=== PATIENT | female | born 1965 | race Caucasian/White ===

== ENCOUNTER → 2019-09-25 08:00 | Outpatient (CLI) | payer OTHER, SELFPAY ==
--- NOTE | 2019-09-25 08:04 | BI_ITS ---
MAMMOGRAPHY - BILATERAL SCREENING REASON FOR EXAM: Female, 54 years old. Routine annual screening examination. PERTINENT HISTORY: Sister with breast cancer. Aunts with breast cancer. TECHNIQUE: Digital bilateral breast kj (3D mammographic acquisition) in the CC and MLO projections. 2-D mediolateral oblique (MLO) and craniocaudad (CC) views of both breasts were obtained. CAD: Full Field Digital Mammography with Computer Added Detection was performed. COMPARISON: Comparison is made with prior examination dated June 23, 2018. FINDINGS: Breast Composition: The breasts are almost entirely fatty. There are no dominant masses or suspicious calcifications. Stable small benign appearing bilateral axillary lymph nodes. No other significant abnormalities are identified. There has been no significant change since the prior study. BI/SCREEN MAMM (CAD) W/KJ BILAT IMPRESSION: Stable bilateral screening mammogram. Yearly follow-up mammogram recommended. (A) ASSESSMENT CATEGORY: BIRADS Category 2: Benign. A letter regarding these results will be sent to the patient by the facility within 30 days. Approximately 10% of breast cancers are not detected by mammography. A normal mammogram should not delay biopsy of a clinically suspicious abnormality. [id number] Electronically Signed: Matt Hinojosa, at 8:09 EST , Service support ,
== END ==
PROVIDERS: Family Provider Family Medicine; PCP Family Medicine; Referring Provider Family Medicine; Visit Provider Family Medicine
DX: Z12.31 Encounter for screening mammogram for malignant neoplasm of breast (principal)
CPT/HCPCS: 77063; 77067

== ENCOUNTER 2025-04-20 09:08 | Day surgery (SDC) | payer OTHER, SELFPAY ==
[2025-04-20] VITALS (8 sets, daily range): BP systolic 105–143; BP diastolic 70–98; PULSE 57–78; RESP 16–18; TEMP 36.1–36.6; O2SAT 97–100; BMI 47.2
--- NOTE | 2025-04-20 09:24 | PCM.HP.STD ---
HPI - General General Date of Admission: 04/20/25 Date of Service: 04/20/25 Chief Complaint: Screening colonoscopy HPI Narrative MARION PLASCENCIA, is a 59 F who presents for screening colonoscopy. She had a colonoscopy June 2 years ago and it was normal. She not have any abdominal pain, cramping, chest pain or shortness of breath. [facility] Medical History PONV (postoperative nausea and vomiting) Post-menopausal Wears glasses Cancer Arthritis Hyperthyroidism Thyroid disease Diverticulosis Non-smoker Leg cramps History of stress test Home Medications ?Medication ?Instructions ?Recorded ?Last Taken ?Type glucosamine sulf dipot 3 cap PO QWEEK 04/19/25 Unknown History chlr,msm,chond 550 mg-C 30 mg-flori 1 mg capsule (Glucosamine Chondroitin) levothyroxine 100 mcg tablet 100 mcg PO DAILY disorder of 04/19/25 Unknown History thyroid gland multivitamin (Daily Multi-Vitamin 1 tab PO QWEEK 04/19/25 Unknown History tablet) mv-min-vit C-ascorb 1 tab PO .4X/WEEK 04/19/25 Unknown History Nr-Bwu-Azg-herb #124 333 mg-1.7 mg chewable tablet (Airborne (ascorbate sodium)) sodium hyaluronate 20 mg capsule 60 mg PO QWEEK 04/19/25 Unknown History turmeric 400 mg capsule 400 mg PO QWEEK 04/19/25 Unknown History vitamin B complex (Balanced B-50 1 tab PO QWEEK 04/19/25 Unknown History tablet) vitamin B complex (Vitamins B 1 cap PO QWEEK 04/19/25 Unknown History Complex capsule) Allergy/AdvReac Type Severity Reaction Status Date / Time adhesive AdvReac Intermediate RASH Verified 04/19/25 11:53 loratadine (From Claritin) AdvReac Intermediate Other Verified 04/19/25 11:53 Surgical History History of ureter repair History of wisdom tooth extraction History of foot surgery History of laparoscopy History of laminectomy History of colonoscopy Social History Smoking Status: Never smoker ROS Constitutional Constitutional: Denies fatigue, fever(s), poor appetite, weight gain or weight loss Gastrointestinal Gastrointestinal: Denies belching, bloating, change in bowel habits, change in stool character, chewing difficulty, coffee ground emesis, constipation, cramping, diarrhea, dyspepsia, dysphagia, early satiety, excessive flatus, fecal incontinence, heartburn, hematemesis, hematochezia, hemorrhoids, loose stools, melena, nausea, odynophagia, rectal bleeding, tenesmus, vomiting or weight changes Physical Exam Const alert, oriented x3, no apparent distress and healthy appearing General Appearance: cooperative GI normal to inspection, nondistended, normoactive bowel sounds, soft to palpation, non-tender and non-distended Percussion: normal to percussion Rectal Exam: deferred Assessment & Plan Assessment/Plan (1) Encounter for screening colonoscopy: PLAN: She was explained alternatives, risk and benefits include understanding bleeding, infection, sepsis, perforation, need for surgery . She will have an ASA of 3.
--- NOTE | 2025-04-20 09:37 | PCM.PRE.AN2 ---
ASA Classification* ASA Classification ASA Classification: 2 Assessment & Plan Anesthesia* Anesthesia Assessment Anesthesia Assessment: Discussed sedation and/or anesthesia options, risks, benefits, and alternatives with patient/parents/legal guardian/POA. Questions invited. The patient/parents/legal guardian/POA seems to understand and agrees to proceed with anesthesia plan. Reviewed the physical assessment, medical history, allergy history and patient home medications list prior to surgery/procedure/anesthetic and documented any changes. Performed airway and anesthesia risk assessments. Anesthesia Type Anesthesia Type: MAC Anesthesia Focused Assessment* Temperature: 97.3 F Pulse Rate: 78 Blood Pressure: 143/98 Respiratory Rate: 18 Pulse Ox: 97 Oxygen Delivery Method: Room Air Airway Assessment Mouth opens: >3 cm Mallampati Score: II Teeth Condition: Intact Neck Range of motion (ROM): Full ROM Labs Anesthesia Preop lab: CBC CHEMISTRY COAG Pre-Assessment Diagnosis/Proposed Procedure Planned Operative Procedure(s): CSCOPE Anesthesia History Anesthesia History - title department manager: Anesthesia History - title department manager Hx Hospitalization No 04/19/25 11:57 Any Problems With Anesthesia Yes: PONV 04/19/25 11:57 Cholinesterase deficiency No 04/19/25 11:57 You/Your Family Experience No 04/19/25 11:57 fever (hyperthermia) with Relationship Recent Exposure to Contagious No 04/20/25 09:33 Disease Does patient have nerve No 04/19/25 11:57 stimulator Patient instructed to have device shut off --Does patient have Pacemaker No 04/20/25 09:33 or ICD? When Was Last Pacemaker Check QUESTION #4 FULL TEXT: You/Your Family Experience fever (hyperthermia) with Anesthesia Last Oral Intake Last Oral intake: Last Oral Intake NPO since 06:45 04/20/25 09:33 Meds taken in AM with sips of water? Meds patient instructed to take am of surgery PONV PONV - title department manager: PONV - title department manager Female Yes 04/19/25 11:57 HX of Motion Sickness Yes 04/19/25 11:57 HX of N/V After Surgery Yes 04/19/25 11:57 Non-Smoker Yes 04/19/25 11:57 Duration of Surgery greater No 04/19/25 11:57 than 60 minutes Number of Risk Factors 4 04/19/25 11:57 PONV Score Severe Risk 04/19/25 11:57 Height & Weight Height & Weight: Anesthesia: Height & Weight Height 5 ft 4 in 04/20/25 09:33 Weight: 124.8 kg 04/20/25 09:33 Body Mass Index (BMI) 47.2 04/20/25 09:33 Respiratory Assessment Respiratory Assessment - title department manager: Respiratory Tract Infection Hx - title department manager Hx Respiratory Tract Infection No 04/19/25 11:57 STOP Sleep Apnea STOP Sleep Apnea - title department manager: STOP Sleep Apnea - title department manager Hx Hypertension No 04/19/25 11:57 Hx Sleep Apnea No 04/19/25 11:57 CPAP BIPAP Do you snore loudly (louder No 04/19/25 11:57 than talking or can be heard Do you often feel tired/ No 04/19/25 11:57 fatigued/ sleepy during daytime? Has anyone observed you stop No 04/19/25 11:57 breathing during sleep? STOP Results Negative 04/19/25 11:57 QUESTION #5 FULL TEXT : Do you snore loudly (louder than talking or can be heard through closed doors)? 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 Specify any problems Hx of Preganancy in last 3 N/A 04/19/25 11:57 Months Nurse Filling Out Transfusion NBUCHER 04/19/25 11:57 & Questions: Date: 04/19/25 04/19/25 11:57 Time: 11:59 04/19/25 11:57 Patient unable to answer at this time (ie. confused, unrespo /Reproduction History /Reproductive History - title department manager: /Reproductive Hx- title department manager Hx Now No 04/19/25 11:57 Gestational Age (in weeks): EDC: Hx Hx Para Hx Section SAB No 04/19/25 11:57 Active Medications Active Medications: Current Medications Generic Name Dose Route Start Last Admin Trade Name Freq PRN Reason Stop Dose Admin Lactated Ringer's 1,000 mls @ 15 mls/hr 04/20/25 09:15 IV .Q48H TONIA PFSH Medical History PONV (postoperative nausea and vomiting) Post-menopausal Wears glasses Cancer Arthritis Hyperthyroidism Thyroid disease Diverticulosis Non-smoker Leg cramps History of stress test Home Medications ?Medication ?Instructions ?Recorded ?Last Taken ?Type glucosamine sulf dipot 3 cap PO QWEEK 04/19/25 04/19/25 History chlr,msm,chond 550 mg-C 30 mg-flori 1 mg capsule (Glucosamine Chondroitin) levothyroxine 100 mcg tablet 100 mcg PO DAILY disorder of 04/19/25 04/20/25 History thyroid gland multivitamin (Daily Multi-Vitamin 1 tab PO QWEEK 04/19/25 04/18/25 History tablet) mv-min-vit C-ascorb 1 tab PO .4X/WEEK 04/19/25 04/19/25 History Bk-Oxy-Zby-herb #124 333 mg-1.7 mg chewable tablet (Airborne (ascorbate sodium)) sodium hyaluronate 20 mg capsule 60 mg PO QWEEK 04/19/25 04/17/25 History turmeric 400 mg capsule 400 mg PO QWEEK 04/19/25 04/15/25 History vitamin B complex (Balanced B-50 1 tab PO QWEEK 04/19/25 04/16/25 History tablet) vitamin B complex (Vitamins B 1 cap PO QWEEK 04/19/25 04/16/25 History Complex capsule) Allergy/AdvReac Type Severity Reaction Status Date / Time nut - unspecified (nuts) Allergy Intermediate edema in Verified 04/20/25 09:31 lips adhesive AdvReac Intermediate RASH Verified 04/20/25 09:30 loratadine (From Claritin) AdvReac Intermediate Other Verified 04/20/25 09:30 Surgical History History of ureter repair History of wisdom tooth extraction History of foot surgery History of laparoscopy History of laminectomy History of colonoscopy Social History Smoking Status: Never smoker Review of Systems (Anesthesia) ROS Narrative System reviewed and no additional complaints, except as documented.
[2025-04-20] MEDS: Lactated Ringers 1,000 ML 15 ML IV (09:45)
--- NOTE | 2025-04-20 10:56 | PCM.POST.ANE ---
Anesthesia: Postop Eval I Current Vital Signs Temperature: 98 F Pulse Rate: 70 Blood Pressure: 105/78 Respiratory Rate: 16 Pulse Ox: 100 Oxygen Delivery Method: Room Air Assessment Airway patent: Yes Spontaneous unlabored respirations: Yes Mental status: Awake and Calm nausea: No Vomiting: No Anesthesia Complication: No Fluid Hydration Crystalloid volume administer (ml): 500 Total IV fluid infused: 500 Progress Note Anesthesia document: Postop Eval 1 completed: Yes
--- NOTE | 2025-04-20 11:00 | POSTOPAN2_ITS ---
Anesthesia Postop Eval I Sum Postop Eval Completion status Anesthesia document: Postop Eval 1 completed: Yes Anesthesia Postop Eval I Summary Anesthesia Postop Eval I Summary: Anesthesia Postop Eval I: Assessment Summary Airway patent Yes 04/20/25 10:56 FITNESS CONSULTANT.MDOT Spontaneous unlabored Yes 04/20/25 10:56 FITNESS CONSULTANT.MDOT respirations Mental status Awake,Calm 04/20/25 10:56 FITNESS CONSULTANT.MDOT nausea No 04/20/25 10:56 FITNESS CONSULTANT.MDOT Vomiting No 04/20/25 10:56 FITNESS CONSULTANT.MDOT Anesthesia Postop Eval I: Fluid Summary Crystalloid volume administer 500 04/20/25 10:56 FITNESS CONSULTANT.MDOT (ml) Colloids volume administered ( ml) Blood Product volume administered (ml) Total IV fluid infused 500 04/20/25 10:56 FITNESS CONSULTANT.MDOT Anesthesia Postop Eval I: Summary Notes Anesthesia Complication No 04/20/25 10:56 FITNESS CONSULTANT.MDOT Anesthesia Complication Comment: Post-operative progress note Anesthesia: Postop Eval II Evaluation Mental status: Awake and Calm Pain Level: 0 nausea: No Vomiting: No Complications Anesthesia Complication: No
--- NOTE | 2025-04-20 11:00 | PCM.POSTANE2 ---
Anesthesia Postop Eval I Sum Postop Eval Completion status Anesthesia document: Postop Eval 1 completed: Yes Anesthesia Postop Eval I Summary Anesthesia Postop Eval I Summary: Anesthesia Postop Eval I: Assessment Summary Airway patent Yes 04/20/25 10:56 FOUNTAIN WORKER.MDOT Spontaneous unlabored Yes 04/20/25 10:56 FOUNTAIN WORKER.MDOT respirations Mental status Awake,Calm 04/20/25 10:56 FOUNTAIN WORKER.MDOT nausea No 04/20/25 10:56 FOUNTAIN WORKER.MDOT Vomiting No 04/20/25 10:56 FOUNTAIN WORKER.MDOT Anesthesia Postop Eval I: Fluid Summary Crystalloid volume administer 500 04/20/25 10:56 FOUNTAIN WORKER.MDOT (ml) Colloids volume administered ( ml) Blood Product volume administered (ml) Total IV fluid infused 500 04/20/25 10:56 FOUNTAIN WORKER.MDOT Anesthesia Postop Eval I: Summary Notes Anesthesia Complication No 04/20/25 10:56 FOUNTAIN WORKER.MDOT Anesthesia Complication Comment: Post-operative progress note Anesthesia: Postop Eval II Evaluation Mental status: Awake and Calm Pain Level: 0 nausea: No Vomiting: No Complications Anesthesia Complication: No
--- NOTE | 2025-04-20 11:01 | OP.PROVAT_ITS ---
04/20/2025 Selena Herron Re : Colonoscopy procedure for Holli Barahona Dear Gopal This procedure was performed on Sunday, April 20, 2025. My impressions and recommendations are as follows: Impressions : - Diverticulosis in the recto-sigmoid colon, in the sigmoid colon and in the descending colon. - The examination was otherwise normal on direct and retroflexion views. - No specimens collected. Recommendations : - Discharge patient to home. - Resume previous diet. - Continue present medications. - Repeat colonoscopy in 10 years for screening purposes. My findings are described in the full procedure note, which is enclosed. If I can be of further assistance, please feel free to contact me at . Sincerely, Guerrero Newby, 04/20/2025 11:00:48 AM This report has been signed electronically.
--- NOTE | 2025-04-20 11:01 | POSTOPAN2_ITS ---
Anesthesia Postop Eval I Sum Postop Eval Completion status Anesthesia document: Postop Eval 1 completed: Yes Anesthesia Postop Eval I Summary Anesthesia Postop Eval I Summary: Anesthesia Postop Eval I: Assessment Summary Airway patent Yes 04/20/25 10:56 RF [email or web address] Spontaneous unlabored Yes 04/20/25 10:56 RF TECHNICIAN.MDOT respirations Mental status Awake,Calm 04/20/25 11:00 RF TECHNICIAN.MDOT nausea No 04/20/25 11:00 RF TECHNICIAN.MDOT Vomiting No 04/20/25 11:00 RF TECHNICIAN.MDOT Anesthesia Postop Eval I: Fluid Summary Crystalloid volume administer 500 04/20/25 10:56 RF TECHNICIAN.MDOT (ml) Colloids volume administered ( ml) Blood Product volume administered (ml) Total IV fluid infused 500 04/20/25 10:56 RF TECHNICIAN.MDOT Anesthesia Postop Eval I: Summary Notes Anesthesia Complication No 04/20/25 11:00 RF TECHNICIAN.MDOT Anesthesia Complication Comment: Post-operative progress note Anesthesia: Postop Eval II Evaluation Mental status: Awake and Calm Pain Level: 0 nausea: No Vomiting: No Complications Anesthesia Complication: No
--- NOTE | 2025-04-20 11:01 | OP.COLON_ITS ---
Patient Name: Holli Barahona Procedure Date: 04/20/2025 10:28 AM Date of : 1965 Age: 59 Procedure: Colonoscopy Indications: Screening for colorectal malignant neoplasm Providers: Guerrero Newby DO Referring MD: Selena Herron Medicines: Monitored Anesthesia Care Patient Profile: This is a 59 year old female. Refer to note in patient chart for documentation of history and physical. Last Colonoscopy: 10 years ago. Complications: No immediate complications. Procedure: Pre-Anesthesia Assessment: - Prior to the procedure, a History and Physical was performed, and patient medications and allergies were reviewed. The patient is competent. The risks and benefits of the procedure and the sedation options and risks were discussed with the patient. All questions were answered and informed consent was obtained. Patient identification and proposed procedure were verified by the physician in the pre-procedure area. Mental Status Examination: alert and oriented. Airway Examination: normal oropharyngeal airway and neck mobility. Respiratory Examination: clear to auscultation. CV Examination: normal. Prophylactic Antibiotics: The patient does not require prophylactic antibiotics. Prior Anticoagulants: The patient has taken no anticoagulant or antiplatelet agents except for NSAID medication. ASA Grade Assessment: II - A patient with mild systemic disease. After reviewing the risks and benefits, the patient was deemed in satisfactory condition to undergo the procedure. The anesthesia plan was to use monitored anesthesia care (MAC). Immediately prior to administration of medications, the patient was re-assessed for adequacy to receive sedatives. The heart rate, respiratory rate, oxygen saturations, blood pressure, adequacy of pulmonary ventilation, and response to care were monitored throughout the procedure. The physical status of the patient was re-assessed after the procedure. After I obtained informed consent, the scope was passed under direct vision. Throughout the procedure, the patient's blood pressure, pulse, and oxygen saturations were monitored continuously. The pediatric colonoscope was introduced through the anus and advanced to the cecum, identified by appendiceal orifice and ileocecal valve. The colonoscopy was performed without difficulty. The patient tolerated the procedure well. The quality of the bowel preparation was adequate. The ileocecal valve, appendiceal orifice, and rectum were photographed. Scope In: 10:38:57 AM Scope Withdrawal Time 0 hours 8 minutes 1 second Scope Out: 10:53:30 AM Total Procedure Duration Time 0 hours 14 minutes 33 seconds Findings: The perianal and digital rectal examinations were normal. Multiple large-mouthed diverticula were found in the recto-sigmoid colon, sigmoid colon and descending colon. The exam was otherwise without abnormality on direct and retroflexion views. Impression: - Diverticulosis in the recto-sigmoid colon, in the sigmoid colon and in the descending colon. - The examination was otherwise normal on direct and retroflexion views. - No specimens collected. Recommendation: - Discharge patient to home. - Resume previous diet. - Continue present medications. - Repeat colonoscopy in 10 years for screening purposes. Procedure Code(s): --- Professional --- G0121, Colorectal cancer screening; colonoscopy on individual not meeting criteria for high risk CPT copyright 2021 [employer]. All rights reserved. The codes documented in this report are preliminary and upon braille coder review may be revised to meet current compliance requirements. Guerrero Newby DO 04/20/2025 11:00:48 AM This report has been signed electronically. Number of Addenda: 0 Note Initiated On: 04/20/2025 10:28 AM
--- NOTE | 2025-04-20 11:01 | PCM.POSTANE2 ---
Anesthesia Postop Eval I Sum Postop Eval Completion status Anesthesia document: Postop Eval 1 completed: Yes Anesthesia Postop Eval I Summary Anesthesia Postop Eval I Summary: Anesthesia Postop Eval I: Assessment Summary Airway patent Yes 04/20/25 10:56 RANCH RIDER.MDOT Spontaneous unlabored Yes 04/20/25 10:56 RANCH RIDER.MDOT respirations Mental status Awake,Calm 04/20/25 11:00 RANCH RIDER.MDOT nausea No 04/20/25 11:00 RANCH RIDER.MDOT Vomiting No 04/20/25 11:00 RANCH RIDER.MDOT Anesthesia Postop Eval I: Fluid Summary Crystalloid volume administer 500 04/20/25 10:56 RANCH RIDER.MDOT (ml) Colloids volume administered ( ml) Blood Product volume administered (ml) Total IV fluid infused 500 04/20/25 10:56 RANCH RIDER.MDOT Anesthesia Postop Eval I: Summary Notes Anesthesia Complication No 04/20/25 11:00 RANCH RIDER.MDOT Anesthesia Complication Comment: Post-operative progress note Anesthesia: Postop Eval II Evaluation Mental status: Awake and Calm Pain Level: 0 nausea: No Vomiting: No Complications Anesthesia Complication: No
--- NOTE | 2025-04-20 11:28 | SUR.PHASEII ---
friend to bedside to answer questions from patient.
== END 2025-04-20 12:00 | disposition home or self-care (01) ==
LOC: EN 09:09 → AC 09:11
PROVIDERS: PCP Registered Nurse; Referring Provider Registered Nurse; Visit Provider Internal Medicine Gastroenterology
PROC: 0DJD8ZZ Inspection of Lower Intestinal Tract, Via Natural or Artificial Opening Endoscopic (ICD-10-PCS; CPT 45378; principal; 2025-04-20 10:10)
DX: Z12.11 Encounter for screening for malignant neoplasm of colon (principal); K57.30 Diverticulosis of large intestine without perforation or abscess without bleeding; E05.90 Thyrotoxicosis, unspecified without thyrotoxic crisis or storm; M19.90 Unspecified osteoarthritis, unspecified site; Z79.890 Hormone replacement therapy
CPT/HCPCS: 45378